=== PATIENT | female | born 1940 | race Caucasian/White ===

== ENCOUNTER 2024-03-11 10:19 | Inpatient (IN) | payer MEDICARE, SELFPAY ==
[2024-03-04 09:35] VITALS: BMI 28.1
[2024-03-11] VITALS (11 sets, daily range): BP systolic 95–155; BP diastolic 43–72; PULSE 70–84; RESP 13–19; TEMP 36.2–36.8; O2SAT 93–98; BMI 27.8; BMI 31.2
--- NOTE | 2024-03-11 10:38 | PM.PREOP ---
Pre-operative Note Interval Note History & Physical reviewed/Exam performed by Physician: Yes Changes to H&P: No
[2024-03-11] MEDS: LACTATED RINGERS 1,000 ML 42 ML IV ×2 (11:02→12:23)
[2024-03-11] MEDS: ACETAMINOPHEN 325 MG TABLET 975 MG PO (11:02)
[2024-03-11] MEDS: CEFAZOLIN 2 GM/100 ML PREMIX 100 ML IV (11:19)
[2024-03-11] MEDS: BUPIVACAINE 0.25% (PF) 60 ML, EPINEPHrine 0.15 MG INJ (11:40)
[2024-03-11] MEDS: BUPIVACAINE LIPOSOME 266 MG/20 ML VIAL INJ (11:41)
--- NOTE | 2024-03-11 11:41 | SUR.OPER ---
Prone on spine table, head in foam head support, padded chest and pelvic supports, gel pad at knees, lower legs supported by pillows; nipples, genitalia and toes free of pressure, arms secured on foam padded arm boards at <90 degrees abduction. Tape over blanket at thigh secured to table.
--- NOTE | 2024-03-11 13:10 | DI.RAD.S_ITS ---
PROCEDURE: XR LUMBAR SPINE 2-3V INDICATIONS: L3-4 TLIF TECHNIQUE: 3 intraoperative views of the lumbar spine were acquired. COMPARISON: None. FINDINGS: Bones: Intraoperative views during L3-L4 posterior spinal fixation discectomy. Hardware appears intact. IMPRESSION: Intraoperative views during L3-L4 posterior spinal fixation and discectomy. Hardware appears intact. Dictated by: Jose Elias Woodward M.D. on 03/11/2024 at 14:57 Approved by: Jose Elias Woodward M.D. on 03/11/2024 at 14:57
--- NOTE | 2024-03-11 13:22 | P.OP_ITS ---
Operative Date/Time/Diagnoses Date of procedure: 03/11/24 Time of procedure: 11:20 Pre-op diagnosis: 1. L3-4 spondylolisthesis 2. 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 L3-4 Postero-lateral and posterior interbody fusion 2. L3-4 interbody cage placement. 3. L3-4 decompressive laminectomy with bilateral facetecomies 4. L3-4 Posterior non-segmental instrumentation 5. Nedrow of bone marrow from iliac crest 6. Utilization of microsurgical technique and operating microscope Same procedure as scheduled: Yes Indications: Patient has been having chronic back pain and worsening lumbar radiculopathy and symptoms of neurogenic claudication. Patient was found have L3-4 spondylolisthesis and spinal stenosis correlate with patient's symptoms. Patient failed multiple conservative management with worsening pain weakness and numbness in her lower extremity. Patient has been having difficulty performing activity of daily living. After discussing risks benefits of treatment options, patient elected proceed with surgery. Surgeon: Lynda Escalona Welder/Installer: Marsha Trujillo Yes if Unassisted: No Anesthesia Type: General Operative Notes Closure Type: primary Prosthetic devices, grafts, tissues, transplants, or devices: Globus revolve screws, Rise cage Estimated Blood Loss (mL): 50 Blood products transfused: none Procedure in detail: Patient was seen in the preoperative area. Risks and benefits of the surgery was discussed with the patient. Informed consent was obtained from the patient and placed in the chart. Surgical site was marked. Patient was taken to the operative room. General anesthesia was administered. Prophylactic antibiotic was given to the patient less than 30 min before the incision was made. Patient was placed into a prone position on the Lobito table. Patient's back was then prepped and draped in the sterile fashion. Time-out was performed at this time. Using AP and lateral C-arm imaging the interval between L3-4 was identified and marked on patient's back. A 2 inch incision 2 in from midline was made on the right side first. The fascia was incised in line with skin incision. Globus MARS retractors was placed inside the incision and docked onto the L3 lamina. Using microsurgical technique and operating microscope, a L3 laminectomy and L3- 4 facetectomy was performed using a Kerrison rongeur. The laminectomy and facetectomy was performed in order to decompress patient's cauda equina as well as the nerve roots exiting at the L3-4 level. The disc space at L3-4 was identified. And a total diskectomy was performed at L3-4 level. The endplates were decorticated using a rasp and shaver. The total diskectomy and decortication was performed at L3-4 level in order to to accomplish a L3-4 fusion. The local bone from the laminectomy and facetectomy was saved for local bone grafting. After the total diskectomy and decortication was completed, Viacel bone graft material was combined with local bone that was harvested earlier. At this time, a separate skin is incision was made over the iliac crest. A Jamshidi needle was inserted into the iliac crest through a separate skin incision on the left side. 5 cc of bone marrow aspiration was obtained through the separate skin incision using a Jamshidi needle from the iliac crest. The bone marrow aspiration was combined with local bone and the Viacel bone grafting material. The bone grafting material was placed into the L3-4 interbody space along with a expandable cage. The cage was expanded to its maximum height using the torque limiting screwdriver. At this time a mirror image incision was made on the left side. The fascia was incised in line with the skin incision. Globus MARS retractor was inserted and docked onto the L3-4 posterolateral gutter. Using the power drill, posterior- lateral decortication was performed at L3-4 level until bleeding cortical bone was identified. The remaining bone grafting material was placed into the L3-4 posterior lateral gutter he order to accomplish posterolateral fusion at the L3- 4 level. Using the double C-arm technique, pedicle screws were placed into the L3-4 pedicles bilaterally. This was done by placing the Jamshidi needle into the pedicles, then placing the guidewires over the Jamshidi needle, and finally placing the cannulated screws over the guidewires bilaterally. After the pedicle screws were placed, 2 titanium rods was locked into the heads of the pedicle screws using locking caps and torque limiting screwdriver. After all the hardware was placed, and confirmed with AP and lateral C-arm imaging, the wound was then irrigated with sterile normal saline and packed with Ray-Lynn gauze for 3 min to accomplish hemostasis. After the gauze was removed the deep fascia was closed with #1 Vicryl suture. The subcutaneous layer was closed with 2-0 Vicryl. The skin was closed with skin manny. Patient tolerated the procedure well. There were no complications. The Operation could not have been safely performed without compromising the technical result or length of the procedure, without the assistance of a skilled surgical forceps fabricator. The surgical forceps fabricator was medically necessary for proper positioning, retraction and manipulation of instruments, proper exposure, surgical preparation, and manipulation of tissue. Neuro monitoring was utilized throughout the entire procedure. Patient has signal was stable throughout entire procedure without any disturbance. Complications: none Post-operative Condition: stable Disposition: PACU Plan for aftercare: Admit to inpatient hospital
[2024-03-11] MEDS: OXYCODONE IR 5 MG TABLET PO ×3 (14:09→21:36)
[2024-03-11] MEDS: LACTATED RINGERS 1,000 ML 125 ML IV (14:42)
[2024-03-11] MEDS: HYDROMORPHONE 0.5 MG INJ IV (14:45)
--- NOTE | 2024-03-11 16:14 | PT.IIE ---
Current Diagnoses Spondylolisthesis, lumbar region (03/11/24) Spinal stenosis, lumbar region with neurogenic claudication (03/11/24) Surgery Performed Operation Date: 03/11/24 11:45 Actual Procedures p L3-4 TLIF(Not Applicable) - Lynda Escalona MD Surgical History (Last Updated 03/04/24 @ 10:20 by Ifeoma Scott, RN) History of hysterectomy (1982) History of orthopedic surgery Hx of bilateral cataract extraction Hx of cholecystectomy Hx of ovarian cystectomy Hx of right breast biopsy Hx of tonsillectomy Medical History (Last Updated 03/04/24 @ 10:17 by Ifeoma Scott, ALDO) Anesthesia complication CKD (chronic kidney disease), stage III Depression Grief HLD (hyperlipidemia) HTN (hypertension) IBS (irritable bowel syndrome) RLS (restless legs syndrome) Spinal stenosis Spondylolisthesis Physical Therapy Inpatient Evaluation/Re-Eval M1 PT/OT-IP Prior Functional Status Start: 03/11/24 17:00 Freq: NEEDED Status: Active Protocol: Document 03/11/24 16:14 AB (Rec: 03/11/24 17:15 AB [id number]) Medical Review Prior Functional Status Medical History Reviewed Yes Communication able to make needs known Mobility and Gait pt stated that she was modified independent with all mobilities and ambulation without AD but occasionally uses a FWW Social History Household Members none Living Arrangements Mobile home Number of Floors (Floors) One Floor Number of Stairs To Enter/Railing? ramp to enter Home Environment Standard Height Toilet,Ramp Home Equipment Front Wheel Walker,Four Wheel Walker,Straight Cane,Hand Held Shower,Grab Bars In Shower Additional Social History Comment pt stated that her neighbor is putting a shower chair and a RTS at her house today and does not know what kind they are pt has an adjustable bed pt lives alone but plan is for her 3 daughters to rotate to stay with her and assist her M2 PT-IP Current Condition Start: 03/11/24 17:00 Freq: NEEDED Status: Active Protocol: Document 03/11/24 16:14 AB (Rec: 03/11/24 17:15 AB [id number]) Physical Therapy Current Condition Current Condition Evaluation Date 03/11/24 Treatment Diagnosis s/p L3-4 TLIF; difficulty in walking Onset Date 03/11/24 M3 PT-IP Subjective Start: 03/11/24 17:00 Freq: NEEDED Status: Active Protocol: Document 03/11/24 16:14 AB (Rec: 03/11/24 17:15 AB [id number]) Subjective Physical Therapy Visit Type Type Initial Evaluation Visit Start Time 16:14 Visit Stop Time 17:00 Number of CUSTOMER SERVICE CONSULTANT Visits 0 Physical Therapy Visit Comments Patient Comments agreeable to do PT Therapy Pain Assessment Pain When Pain Assessed At Rest Pain Present Pain Present Pain Reported Location low back to right leg Intensity 2 Scale Used 3/10 with movement Pain Management Techniques Distraction,Modification of Treatment,Re-positioning, Timing of Activity with Medications M4 PT-IP Mobility and Gait Start: 03/11/24 17:00 Freq: NEEDED Status: Active Protocol: Document 03/11/24 16:14 AB (Rec: 03/11/24 17:15 AB [id number]) PT-Bed Mobility Assessment Rolling Type of Rolling Log Rolling Level of Assist Moderate Assistance Supine to Sit Supine to Sit Moderate Assistance,Bedrails Sit to Supine Sit to Supine Moderate Assistance PT-Transfer Assessment Sit to and From Stand Sit to and from Stand Moderate Assistance,Maximum Assistance,1 Person Assistance ,Use of Upper Extremities Equipment Transfer Assistive Device Gait Belt,Front Wheeled Walker Orthotic/Prosthetic Devices or Brace: No Comments Mobility Comments pt supine in bed and agreeable to do PT. daughter in room with pt. obtained PLOF and home set up from pt and daughter. post-op folder provided and reviewed contents . pt able to recall her back precautions. educated pt on log roll bed mobility. BP: 116/50 O2 sat with 2L/min O2: 94% at RA: 90-92 % cued pt for deep breathing. trial without O2. pt completed log roll supine to sit mod A and max cues. O2 sat decreases at RA to ~ 87%. O2 put back on and cued for deep breathing and O2 sat increased to 96%. BP in sittin/52. pt with slight dizziness. able to sit on EOB for 2 more minutes and BP rechecked: 120/ 57. pt wants to stand and completed sit to stand mod to max A and max cues. mod to max A for standing balance using FWW with increase retro leaning. cued pt to correct. pt marched in place mod to max A and ambulated forward 3 ft and backwards 3 ft max A and cues. pt also took side steps towards HOB using FWW max A and cues. c/o increase dizziness. assisted to supine needing mod A and max cues for log roll. BP checked: 117 /54. pt now c/o nausea. informed nurse for meds. positioned pt in bed. call light and table placed within reach. daughter agreed to do caregiver training and stated that it is her sister that is going to come in tomorrow and will be in at ~ 9am. Gait Assessment Gait Gait Assistance Required: Moderate Assistance,Maximum Assistance,1 Person Assist Distance (Feet) 6 Able to Maintain Weight Bearing Status Yes During Gait Assistive Devices Assistive Device Gait Belt,Front Wheeled Walker Orthotic/Prosthetic Devices or Brace: No Gait Deviations General Gait Pattern Decreased Stride Length, Decreased Feet Clearance,Step- to Gait Factors Limiting Gait Function Factors Limiting Gait Function Decreased Activity Tolerance, Decreased Strength,Difficulty Following Directions,Limited Range of Motion,Pain,Poor Balance,Poor Safety Awareness, Respiratory Distress PT-Balance Assessment Sitting Balance and Reactions Static Sitting Balance Ability Good Dynamic Sitting Balance Ability Fair Standing Balance and Reactions Static Standing Balance Ability Poor Dynamic Standing Balance Ability Poor Device Used FWW M5 PT-IP Objective Assessments Start: 03/11/24 17:00 Freq: NEEDED Status: Active Protocol: Document 03/11/24 16:14 AB (Rec: 03/11/24 17:15 AB [id number]) Orientation Orientation/Cognition Level of Alertness Alert Orientation Name,Place,Situation Safety Awareness Decreased Safety Awareness Memory Description Short Term Impaired Gross Range of Motion Lower Extremity ROM Assessment Within Functional Limits Strength Lower Extremity Strength Assessment Right Impaired Hip 4-/5 Knee 3+/5 Sensation Assessment Sensation Gross Sensation WNL Muscle Tone Muscle Tone WNL Yes M6 PT-IP Treatment Start: 03/11/24 17:00 Freq: NEEDED Status: Active Protocol: Document 03/11/24 16:14 AB (Rec: 03/11/24 17:15 AB [id number]) Physical Therapy Treatment Education Education Provided Precautions,Weight Bearing Status,Post-Op Packet,Safety M7 PT-IP Assessment and Plan Start: 03/11/24 17:00 Freq: NEEDED Status: Active Protocol: Document 03/11/24 16:14 AB (Rec: 03/11/24 17:15 AB [id number]) PT Summary Assessment and Plan Potential Rehabilitation Potential Fair Status of Condition at Evaluation Evolving Summary Impairments Pain,ROM,Strength,Balance, Coordination,Sensation,Tone, Cognition,Bed Mobility, Transfers,Gait,Activity Tolerance Assessment Summary pt is an 83 y/o F s/p L3-4 TLIF POD 0. pt with back precautions. pt requiring mod to max A and max cues with mobility using FWW. pt unable to tolerate much activity today due to c/o dizziness and nausea. pt just had surgery today and will likely progress during hospital stay. pt plans to go home and her daughters will rotate to stay with her to assist. pt's daughter will be coming in at ~ 9 am tomorrow and when appropriate, caregiver training will be conducted. will continue to assess progress. Goals Bed Mobility Goal Standby Assistance Transfer Goal Standby Assistance,Front Wheeled Walker Gait Goal Standby Assistance,Front Wheel Walker Gait Distance 150 Other Goals improve bed mobility, transfers, ambulation using FWW ~ 250 ft mod I Frequency of Treatment Frequency Of Treatment Twice a Day Treatment Plan Physical Therapy Treatment Plan Bed Mobility Training,Transfer Training,Gait Training, Therapeutic Exercise,Balance Retraining,Post Op Education, Discharge Planning,Hot or Cold Pack,Neuromuscular Re-ed, Coordination Retraining,Manual Therapy Precautions Lumbar Precautions Log Roll,No Twisting,Limit Bending,Lifting Restriction of 10 lbs,Gait Belt above Incisional Area Recommendations To Nursing Amount of Assist Needed 1 Person Assist Discharge Recommendations PT Discharge Recommendations Home with 24/ Assist Available,Home Health Transportation Needs at Discharge Private Vehicle,Wheelchair/ Cabulance
[2024-03-11] MEDS: ONDANSETRON 4 MG/2 ML INJ IV (16:52)
[2024-03-11] MEDS: ACETAMINOPHEN 325 MG TABLET 650 MG PO (18:26)
[2024-03-11] MEDS: ATORVASTATIN 20 MG TABLET 10 MG PO (21:36)
[2024-03-11] MEDS: DOCUSATE 100 MG CAPSULE PO (21:36)
[2024-03-11] MEDS: SENNOSIDES 8.6 MG TABLET 17.2 MG PO (21:37)
[2024-03-11] MEDS: GABAPENTIN 100 MG CAPSULE PO (21:37)
[2024-03-12] MEDS: PANTOPRAZOLE DR 20 MG TABLET PO (06:52)
--- NOTE | 2024-03-12 07:18 | PM.PNPO.1 ---
Subjective Subjective Date Patient Seen: 03/12/24 Time Patient Seen: 07:18 Interval history: Patient from lying comfortably in bed. States she has pain along her back. No new numbness or tingling down her legs. She has been able to ambulate with physical therapy but gets tired at times when she goes from a lying to standing positions. Exam Vital Signs (past 8 hours): Fraction of Inspired Oxygen 24 SaO2/FiO2 Ratio 387 Oxygen Delivery Method Nasal Cannula Oxygen Flow Rate 1 Narrative Exam Narrative: SCDs are on. Dressing is clean and dry. No warmth or pain to palpation along the posterior calf or thigh bilaterally. 4/5 strength EPL. PF, DF, Quads and Hamstrings PFSH Medical History (Updated 03/04/24 @ 10:17 by Ifeoma Scott RN) Anesthesia complication Grief Depression Spondylolisthesis Spinal stenosis CKD (chronic kidney disease), stage III IBS (irritable bowel syndrome) HTN (hypertension) HLD (hyperlipidemia) RLS (restless legs syndrome) Surgical History (Updated 03/04/24 @ 10:20 by Ifeoma Scott RN) Hx of ovarian cystectomy Hx of right breast biopsy History of orthopedic surgery Hx of tonsillectomy History of hysterectomy (1982) Hx of cholecystectomy Hx of bilateral cataract extraction Social History household members: none Smoking Status: Never smoker alcohol intake: current Assessment & Plan Post-op Postoperative Procedures: Procedures Operation Date: 03/11/24 11:45 Actual Procedure Side Surgeon p L3-4 TLIF Not Applicable Lynda Escalona MD Postoperative day: 1 Postoperative status: doing well Postoperative plan: routine post-op care and ambulate Postoperative plan narrative: Patient demonstrated orthostatic hypotension throughout the day that worsens when she works with physical therapy. We will administer a bolus of 1000 cc of lactated Ringer's and observed throughout the evening. Order H and H Patient will continue to work with physical therapy to assist with ambulation. Multimodal pain control. Continue to utilize SCDs while in bed for VTE prevention Re-evaluate tomorrow to discharge home. Time Spent With Patient Time with patient: less than 15 minutes Quality VTE Deep Vein Thrombosis/Pulmonary Embolism Present on Admission: No
[2024-03-12] MEDS: ONDANSETRON 4 MG ODT SL ×2 (07:47→16:26)
[2024-03-12] MEDS: ACETAMINOPHEN 325 MG TABLET 650 MG PO (07:47)
[2024-03-12] MEDS: OXYCODONE IR 5 MG TABLET PO ×2 (07:47→12:20)
[2024-03-12 08:00] VITALS: BP 121/52; PULSE 72; RESP 16; TEMP 36.2; O2SAT 93
[2024-03-12 08:39] VITALS: BP 119/57; BP 96/35
[2024-03-12] MEDS: SERTRALINE 50 MG TABLET 75 MG PO (08:41)
[2024-03-12] MEDS: DOCUSATE 100 MG CAPSULE PO ×2 (08:41→21:29)
--- NOTE | 2024-03-12 10:00 | PT.IPTN ---
Current Diagnoses Spondylolisthesis, lumbar region (03/11/24) Spinal stenosis, lumbar region with neurogenic claudication (03/11/24) Surgery Performed Operation Date: 03/11/24 11:45 Actual Procedures p L3-4 TLIF(Not Applicable) - Lynda Escalona MD Physical Therapy Treatment Note M2 PT-IP Current Condition Start: 03/11/24 17:00 Freq: NEEDED Status: Active Protocol: Document 03/11/24 16:14 AB (Rec: 03/11/24 17:15 AB [id number]) Physical Therapy Current Condition Current Condition Evaluation Date 03/11/24 Treatment Diagnosis s/p L3-4 TLIF; difficulty in walking Onset Date 03/11/24 M3 PT-IP Subjective Start: 03/11/24 17:00 Freq: NEEDED Status: Active Protocol: Document 03/12/24 10:24 TS (Rec: 03/12/24 10:44 TS [id number]) Subjective Physical Therapy Visit Type Type Treatment Note Visit Start Time 10:00 Visit Stop Time 10:23 Notes Daughter present for caregiver training. Number of TILE FINISHER Visits 1 Physical Therapy Visit Comments Patient Comments Pt found resting in bed, reports dizziness earlier when up with nursing. She is agreeable to PT. Therapy Pain Assessment Pain When Pain Assessed At Rest Pain Present Pain Present Pain Reported Location low back to right leg Intensity 2 Scale Used Numeric (0 - 10) Description Acute Pain Management Techniques Distraction,Modification of Treatment,Re-positioning, Timing of Activity with Medications M4 PT-IP Mobility and Gait Start: 03/11/24 17:00 Freq: NEEDED Status: Active Protocol: Document 03/12/24 10:24 TS (Rec: 03/12/24 10:44 TS [id number]) PT-Bed Mobility Assessment Rolling Type of Rolling Log Rolling Level of Assist Standby Assistance Supine to Sit Supine to Sit Contact Guard Assistance, Bedrails Scooting Scooting to Edge of Bed Standby Assistance PT-Transfer Assessment Sit to and From Stand Sit to and from Stand Contact Guard Assistance,Use of Upper Extremities Equipment Transfer Assistive Device Gait Belt,Front Wheeled Walker Orthotic/Prosthetic Devices or Brace: No Comments Mobility Comments BP in supine 124/49. Pt recalled 3/3 spinal precautions. Logroll to L side SBA with BUE support, pt demonstrates good carryover. Supine to sit CGA with cues for uprighting trunk. She scooted to EOB SBA with BUE support, cued for decreased twisting. BP in sitting 129/56 , pt has some dizziness. STS with FWW CGA, BP in standing 113/49, pt reports some dizziness/lightheadedness. She ambulated ~50'CGA with FWW, pt reports increased lightheadedness and some sweating. Pt sat in chair, BP in sitting 120/47. She was left in chair, all needs met. Gait Assessment Gait Gait Assistance Required: Contact Guard Assist Distance (Feet) 50 Able to Maintain Weight Bearing Status Yes During Gait Assistive Devices Assistive Device Gait Belt,Front Wheeled Walker Orthotic/Prosthetic Devices or Brace: No Gait Deviations General Gait Pattern Decreased Stride Length, Decreased Feet Clearance,Step- to Gait Factors Limiting Gait Function Factors Limiting Gait Function Decreased Activity Tolerance, Decreased Strength,Difficulty Following Directions,Limited Range of Motion,Pain,Poor Balance,Poor Safety Awareness, Respiratory Distress Comments Gait Comments See mobility comments PT-Balance Assessment Sitting Balance and Reactions Static Sitting Balance Ability Good Dynamic Sitting Balance Ability Fair Standing Balance and Reactions Static Standing Balance Ability Good Dynamic Standing Balance Ability Fair Device Used FWW M5 PT-IP Objective Assessments Start: 03/11/24 17:00 Freq: NEEDED Status: Active Protocol: Document 03/11/24 16:14 AB (Rec: 03/11/24 17:15 AB [id number]) Orientation Orientation/Cognition Level of Alertness Alert Orientation Name,Place,Situation Safety Awareness Decreased Safety Awareness Memory Description Short Term Impaired Gross Range of Motion Lower Extremity ROM Assessment Within Functional Limits Strength Lower Extremity Strength Assessment Right Impaired Hip 4-/5 Knee 3+/5 Sensation Assessment Sensation Gross Sensation WNL Muscle Tone Muscle Tone WNL Yes M6 PT-IP Treatment Start: 03/11/24 17:00 Freq: NEEDED Status: Active Protocol: Document 03/12/24 10:24 TS (Rec: 03/12/24 10:44 TS [id number]) Physical Therapy Treatment Education Education Provided Precautions,Weight Bearing Status,Post-Op Packet,Safety M7 PT-IP Assessment and Plan Start: 03/11/24 17:00 Freq: NEEDED Status: Active Protocol: Document 03/12/24 10:24 TS (Rec: 03/12/24 10:44 TS [id number]) PT Summary Assessment and Plan Potential Rehabilitation Potential Fair Summary Impairments Pain,ROM,Strength,Balance, Coordination,Sensation,Tone, Cognition,Bed Mobility, Transfers,Gait,Activity Tolerance Progress Towards Goals Slow Progress due to Medical Issues Assessment Summary Jamilah is making progress with her mobility but remains limited by hypotension. She is SBA/CGA for bed mobility and demonstrates some carryover of bed mobility sequencing. She progressed her gait to ~50'CGA with FWW. She continues to have some hypotension(see mobility comments) with symptoms, RN was notified. Daughter was instructed in donning of gait belt, bed mobility, STS and gait. PT is recommending home with assist. Goals Bed Mobility Goal Standby Assistance Transfer Goal Standby Assistance,Front Wheeled Walker Gait Goal Standby Assistance,Front Wheel Walker Gait Distance 150 Other Goals improve bed mobility, transfers, ambulation using FWW ~ 250 ft mod I Frequency of Treatment Frequency Of Treatment Twice a Day Treatment Plan Physical Therapy Treatment Plan Bed Mobility Training,Transfer Training,Gait Training, Therapeutic Exercise,Balance Retraining,Post Op Education, Discharge Planning,Hot or Cold Pack,Neuromuscular Re-ed, Coordination Retraining,Manual Therapy Precautions Lumbar Precautions Log Roll,No Twisting,Limit Bending,Lifting Restriction of 10 lbs,Gait Belt above Incisional Area Recommendations To Nursing Amount of Assist Needed Standby Assistance Discharge Recommendations PT Discharge Recommendations Home with Assistance,Home Health Transportation Needs at Discharge Private Vehicle
--- NOTE | 2024-03-12 11:18 | OT.IP.EVAL ---
Current Diagnoses Spondylolisthesis, lumbar region (03/11/24) Spinal stenosis, lumbar region with neurogenic claudication (03/11/24) Surgery Performed Operation Date: 03/11/24 11:45 Actual Procedures p L3-4 TLIF(Not Applicable) - Lynda Escalona MD Past Medical History (Last Updated 03/04/24 @ 10:17 by Ifeoma Scott, RN) Anesthesia complication CKD (chronic kidney disease), stage III Depression Grief HLD (hyperlipidemia) HTN (hypertension) IBS (irritable bowel syndrome) RLS (restless legs syndrome) Spinal stenosis Spondylolisthesis Surgical History (Last Updated 03/04/24 @ 10:20 by Ifeoma Scott RN) History of hysterectomy (1982) History of orthopedic surgery Hx of bilateral cataract extraction Hx of cholecystectomy Hx of ovarian cystectomy Hx of right breast biopsy Hx of tonsillectomy Occupational Therapy Inpatient Evaluation/Re-Eval M1 PT/OT-IP Prior Functional Status Start: 03/11/24 17:00 Freq: NEEDED Status: Active Protocol: Document 03/11/24 16:14 AB (Rec: 03/11/24 17:15 AB [id number]) Medical Review Prior Functional Status Medical History Reviewed Yes Communication able to make needs known Mobility and Gait pt stated that she was modified independent with all mobilities and ambulation without AD but occasionally uses a FWW Social History Household Members none Living Arrangements Mobile home Number of Floors (Floors) One Floor Number of Stairs To Enter/Railing? ramp to enter Home Environment Standard Height Toilet,Ramp Home Equipment Front Wheel Walker,Four Wheel Walker,Straight Cane,Hand Held Shower,Grab Bars In Shower Additional Social History Comment pt stated that her neighbor is putting a shower chair and a RTS at her house today and does not know what kind they are pt has an adjustable bed pt lives alone but plan is for her 3 daughters to rotate to stay with her and assist her M1 PT/OT-IP Prior Functional Status Start: 03/12/24 11:19 Freq: NEEDED Status: Active Protocol: Document 03/12/24 11:20 [facility] (Rec: 03/12/24 11:43 [facility] [id number]) Medical Review Prior Functional Status Medical History Reviewed Yes Communication able to make needs known Mobility and Gait pt stated that she was modified independent with all mobilities and ambulation without AD but occasionally uses a FWW Activities of Daily Living and IADL's Pt states able to do all her need and having more pain. Social History Household Members none Living Arrangements Mobile home Number of Floors (Floors) One Floor Number of Stairs To Enter/Railing? ramp to enter Home Environment Standard Height Toilet,Ramp Home Equipment Front Wheel Walker,Four Wheel Walker,Straight Cane,Hand Held Shower,Grab Bars In Shower Additional Social History Comment pt stated that her neighbor is putting a shower chair and a RTS at her house today and does not know what kind they are pt has an adjustable bed pt lives alone but plan is for her 3 daughters to rotate to stay with her and assist her M2 OT-IP Current Condition Start: 03/12/24 11:19 Freq: Status: Active Protocol: Document 03/12/24 11:20 [facility] (Rec: 03/12/24 11:43 [facility] [id number]) Occupational Therapy Current Condition Current Condition Evaluation Date 03/12/24 Treatment Diagnosis S/P L3-4 TLIF Diagnosis Onset Date 03/11/24 Post Operative Precautions Lumbar Precautions Log Roll,No Twisting,Limit Bending,Lifting Restriction of 10 lbs,Gait Belt above Incisional Area M3 OT- IP Subjective and Pain Start: 03/12/24 11:19 Freq: Status: Active Protocol: Document 03/12/24 11:20 [facility] (Rec: 03/12/24 11:43 [facility] [id number]) OT- Subjective Occupational Therapy Visit Type Type Initial Evaluation Visit Start Time 10:52 Visit Stop Time 11:18 Occupational Therapy Visit Comments Patient Comments Pt feeling woozy and agreed to get up. Patient/Caregiver Goals To go home. OT Pain Assessment Pain When Pain Assessed At Rest Pain Present Pain Present Pain Reported Location low back to right leg Intensity 3 Scale Used Numeric (0 - 10) M4 OT- IP ADL's Start: 03/12/24 11:19 Freq: Status: Active Protocol: Document 03/12/24 11:20 [facility] (Rec: 03/12/24 11:43 [facility] [id number]) OT ADL-Grooming Comments OT Grooming Comments Not performed. OT ADL-Dressing General Eval Lower Body Dressing Ability Maximum Assistance Areas Needing Assistance Socks Comments OT Dressing Comments Able to go over and practice use of sock aid and machine dyer for LB dressing needs. OT ADL-Toileting Comments OT Toileting Comments Not performed. Educated easier to stand and wipe or use of toilet paper aid. OT ADL-Bathing Comments OT Bathing Comments Not performed. M5 OT- IP IADL's Start: 03/12/24 11:19 Freq: Status: Active Protocol: Document 03/12/24 11:20 [facility] (Rec: 03/12/24 11:43 [facility] [id number]) OT-Instrumental Activities of Daily Living Home Safety Awareness Awareness of Need for Assistance at Home Good Awareness Ability to Problem Solve Emergency Able to Problem Solve Situations Home Safety Comments Pt will have her daughter to be able to assist her for all needs. Meal Preparation Meal Preparation Caregiver Provides Assist Layout Technician Layout Technician Caregiver Provides Assist M6 OT- IP Functional Cognition Start: 03/12/24 11:19 Freq: Status: Active Protocol: Document 03/12/24 11:20 [facility] (Rec: 03/12/24 11:43 [facility] [id number]) Cognitive Factors Limiting Selfcare Function Cognitive Ability Level of Alertness Alert Patient Orientation Name,Age,Birthday,Month,Date, Year,Day of Week,Place, Situation Attention Span Ability Capable of Focused Attention, Capable of Sustained Attention Ability to Follow Commands Able to Follow One Step Commands Cognitive Comments Cognitive Assessment Comments Pt able to follow the back precautions with cues. Pt a little woozy when getting up. OT- Vision and Hearing OT- Hearing Assessment OT- Hearing Assessment WFL OT- Vision Assessment Visual Acuity Glasses All The Time M7 OT- IP Mobility and Balance Start: 03/12/24 11:19 Freq: Status: Active Protocol: Document 03/12/24 11:20 [facility] (Rec: 03/12/24 11:43 [facility] [id number]) OT- Bed Mobility Assessment Supine to Sit Supine to Sit Assist Minimal Assistance Sit to Supine Sit to Supine Assist Minimal Assistance Scooting Scooting to Edge of Bed Contact Guard Assistance OT-Transfer Assessment Sit to and From Stand Sit to and from Stand Contact Guard Assistance Technique Transfer Destination Bed Devices Transfer Assistive Devices Gait Belt,Front Wheeled Walker Comments Mobility Comments ALAN for bed mobility and would benefit from having having a bed rail at home to use. Pt tends to reach back and cues to reach forwards. OT- Balance Assessment Sitting Balance and Reactions Static Sitting Balance Ability Good Dynamic Sitting Balance Ability Fair Standing Balance and Reactions Static Standing Balance Ability Good M9 OT- IP Assessment and Plan Start: 03/12/24 11:19 Freq: Status: Active Protocol: Document 03/12/24 11:20 [facility] (Rec: 03/12/24 11:43 [facility] [id number]) OT Summary Assessment and Plan Potential Rehabilitation Potential Good Analytic Complexity at Evaluation Low Summary OT Impairments Pain,Strength,Balance, Functional Mobility,Grooming, Dressing,Toileting,Bathing, Toilet Transfers,Shower Transfers Progress Towards Goals Slow Progress due to Pain,Slow Progress due to Medical Issues Assessment Summary Pt low complexity and main barriers are pain, feeling hypotensive and woozy when getting up at this time. Initiate caregiver training with pt's daugther and will benefit from BSC, sock aid, toilet paper aid, and bed rail for home use. Goals Grooming Goal Independent Dressing Goal Independent Toileting Goal Independent Bathing Goal Standby Assistance Toilet Transfer Goal Independent Shower Transfer Goal Independent Days to Meet Goals 5 Frequency of Treatment Other frequency 5x/week Treatment Plan OT Treatment Plan ADL Training,Functional Mobility,Patient/Family Education,Discharge Planning Discharge Recommendations OT Discharge Recommendations Home with Assistance Home Equipment Needs BSC, sock aid, bed rail, toilet paper aid Transportation Needs at Discharge Private Vehicle
[2024-03-12] MEDS: LACTATED RINGERS 1,000 ML 1000 ML IV (11:31)
[2024-03-12 13:30] VITALS: BP 106/51; BP 114/58; BP 115/55
--- NOTE | 2024-03-12 13:39 | PT.IPTN ---
Current Diagnoses Spondylolisthesis, lumbar region (03/11/24) Spinal stenosis, lumbar region with neurogenic claudication (03/11/24) Surgery Performed Operation Date: 03/11/24 11:45 Actual Procedures p L3-4 TLIF(Not Applicable) - Lynda Escalona MD Physical Therapy Treatment Note M2 PT-IP Current Condition Start: 03/11/24 17:00 Freq: NEEDED Status: Active Protocol: Document 03/11/24 16:14 AB (Rec: 03/11/24 17:15 AB [id number]) Physical Therapy Current Condition Current Condition Evaluation Date 03/11/24 Treatment Diagnosis s/p L3-4 TLIF; difficulty in walking Onset Date 03/11/24 M3 PT-IP Subjective Start: 03/11/24 17:00 Freq: NEEDED Status: Active Protocol: Document 03/12/24 13:59 TS (Rec: 03/12/24 14:08 TS [id number]) Subjective Physical Therapy Visit Type Type Treatment Note Visit Start Time 13:39 Visit Stop Time 13:55 Number of LEAD TECHNOLOGIST IN CYTOGENETICS Visits 2 Physical Therapy Visit Comments Patient Comments Pt found resting in bed, is agreeable to PT. M4 PT-IP Mobility and Gait Start: 03/11/24 17:00 Freq: NEEDED Status: Active Protocol: Document 03/12/24 13:59 TS (Rec: 03/12/24 14:08 TS [id number]) PT-Bed Mobility Assessment Rolling Type of Rolling Log Rolling Level of Assist Standby Assistance Supine to Sit Supine to Sit Standby Assistance,Bedrails Sit to Supine Sit to Supine Standby Assistance Scooting Scooting to Edge of Bed Standby Assistance PT-Transfer Assessment Sit to and From Stand Sit to and from Stand Standby Assistance Equipment Transfer Assistive Device Gait Belt,Front Wheeled Walker Orthotic/Prosthetic Devices or Brace: No Comments Mobility Comments BP in supine 114/58. Supine to sit SBA with BUE support, pt demonstrates good carryover. BP in sitting 106/51. BP in standing 115/55 She ambulated ~150' in the hallway SBA/CGA with FWW, reports some lightheadedness. BP again in standing 108/50. Sit to supine into bed SBA. BP in supine 129/63. Pt was left in bed, all needs met. Gait Assessment Gait Gait Assistance Required: Standby Assistance,Contact Guard Assist Distance (Feet) 150 Able to Maintain Weight Bearing Status Yes During Gait Assistive Devices Assistive Device Gait Belt,Front Wheeled Walker Orthotic/Prosthetic Devices or Brace: No Gait Deviations General Gait Pattern Decreased Stride Length, Decreased Feet Clearance,Step- to Gait Factors Limiting Gait Function Factors Limiting Gait Function Decreased Activity Tolerance, Decreased Strength,Difficulty Following Directions,Limited Range of Motion,Pain,Poor Balance,Poor Safety Awareness, Respiratory Distress Comments Gait Comments See mobility comments PT-Balance Assessment Sitting Balance and Reactions Static Sitting Balance Ability Good Dynamic Sitting Balance Ability Fair Standing Balance and Reactions Static Standing Balance Ability Good Dynamic Standing Balance Ability Fair Device Used FWW M5 PT-IP Objective Assessments Start: 03/11/24 17:00 Freq: NEEDED Status: Active Protocol: Document 03/11/24 16:14 AB (Rec: 03/11/24 17:15 AB [id number]) Orientation Orientation/Cognition Level of Alertness Alert Orientation Name,Place,Situation Safety Awareness Decreased Safety Awareness Memory Description Short Term Impaired Gross Range of Motion Lower Extremity ROM Assessment Within Functional Limits Strength Lower Extremity Strength Assessment Right Impaired Hip 4-/5 Knee 3+/5 Sensation Assessment Sensation Gross Sensation WNL Muscle Tone Muscle Tone WNL Yes M6 PT-IP Treatment Start: 03/11/24 17:00 Freq: NEEDED Status: Active Protocol: Document 03/12/24 13:59 TS (Rec: 03/12/24 14:08 [id number]) Physical Therapy Treatment Education Education Provided Precautions,Weight Bearing Status,Post-Op Packet,Safety M7 PT-IP Assessment and Plan Start: 03/11/24 17:00 Freq: NEEDED Status: Active Protocol: Document 03/12/24 13:59 TS (Rec: 03/12/24 14:08 [id number]) PT Summary Assessment and Plan Potential Rehabilitation Potential Fair Summary Impairments Pain,ROM,Strength,Balance, Coordination,Sensation,Tone, Cognition,Bed Mobility, Transfers,Gait,Activity Tolerance Progress Towards Goals Progressing Toward Goals Assessment Summary Jamilah is progress with her mobility. She continues to be SBA for bed mobility and demonstrates good carryover of sequencing. She progressed her gait to ~150' SBA/CGA with FWW. She continues to have some dizziness in standing, see vitals above. PT is recommending home with assist. Goals Bed Mobility Goal Standby Assistance Transfer Goal Standby Assistance,Front Wheeled Walker Gait Goal Standby Assistance,Front Wheel Walker Gait Distance 150 Other Goals improve bed mobility, transfers, ambulation using FWW ~ 250 ft mod I Frequency of Treatment Frequency Of Treatment Twice a Day Treatment Plan Physical Therapy Treatment Plan Bed Mobility Training,Transfer Training,Gait Training, Therapeutic Exercise,Balance Retraining,Post Op Education, Discharge Planning,Hot or Cold Pack,Neuromuscular Re-ed, Coordination Retraining,Manual Therapy Precautions Lumbar Precautions Log Roll,No Twisting,Limit Bending,Lifting Restriction of 10 lbs,Gait Belt above Incisional Area Recommendations To Nursing Amount of Assist Needed Standby Assistance Discharge Recommendations PT Discharge Recommendations Home with Assistance,Home Health Transportation Needs at Discharge Private Vehicle
--- NOTE | 2024-03-12 14:30 | CM.DANOTE ---
Patient is an 83 yo female who was admitted INPT Status on 03/11/24 for TLIF. Pt has [facility] for insurance and her PCP is Jelena Alejandro. EMR was reviewed. Per ORtho PA, pt tolerated procedure well and to work with therapies and then likely discharge today vs tomorrow pending progress. Per PT/OT, recommending home with assist and HH and pt had orthostatics today and may not be stable for d/c yet today and will work with pt again this afternoon. SW met bedside with pt and Dtr and explained role and they confirm pt lives in [facility] in a mobile home alone but has local supportive Dtrs. Pt is active and independent at baseline and has FWW and friend picking up some home DME for her today. Pt denies any hx of HH or SNF and states her 3 Dtrs are her DPOAs. They confirm that discharge plan is pt to d/c home and her 3 adult Dtrs will take turns staying with the patient and providing assist and transport. SW discussed HH recommendation and discussed services and frequency and both Dtr and pt feel she will be homebound and that HH would be needed. SW provided the HH Choice list and [facility] is contracted with pt's insurance. CC Alisha kindly made [facility] referral and F2F was completed but not faxed yet. Plan: SW to follow for plan of discharge home with Dtr to stay and assist when bp issues resolved and new [facility] referral made. SW to fax F2F, HH orders, and d/c summ to [facility] at discharge. DELIO Coffey Discharge Planning/Care Management CM Discharge Assessment Start: 03/12/24 14:28 Freq: Status: Active Protocol: Document 03/12/24 14:28 [facility] (Rec: 03/12/24 14:30 [id number]) Discharge Planning Assessment Assigned Triple Drum Operator DELIO Huntley DPOA/Assigned Designee Name Dtrs Contact Information [phone] Advance Directives? Yes Advance Directives on File No History Provided By Patient,Family Member,Medical Record Has Patient been admitted in last 30 No days? Prior Living Arrangements Mobile home Household Members none Type of transporation used prior to Drives own vehicle admit Independent with ADL's Yes Is patient alert and oriented? Yes Needs Assistance With Home Chores / Shopping Caregiver for Another No Community Services used prior to Physical Therapy admission: DME Already Rented / Owned FWW / Walker,Cane Patient/Family Preference Home with Home Health Barriers to Discharge No Discharge Plan Home with Home Health Community Services Physical Therapy,Occupational Therapy,Home Health Aid,Home Health Nurse Transportation Arrangement Dtr bedside and will transport Referrals Initiated Home Health If patient plan is home with home health Yes : Has signed face to face form been completed? Medicare Choice List Provided Yes Medicare choice list reviewed on patient,family electronic tablet with SNF/HH Preference [facility] takes pt's insurance Whiteboard Updated in Patient Room with Yes name and ext. # of Triple Drum Operator Review Status In Process Please Provide Date Initial DC 03/12/24 Assessment Was Performed Next Review Type Continued Stay Review Pre-Anesthesia Assessment Start: 03/04/24 09:35 Freq: Status: Active Protocol: Document 03/04/24 09:35 [facility] (Rec: 03/04/24 10:28 [facility] [id number]) Pre-Anesthesia Assessment Patient Information Reviewed Via Phone Assessment Assessment Completed With Patient Comment Labs/EKG done per pt, surgeon has, looked fine not available with chart Primary Care Provider Christine Alonzo Seen Specialist in Last 12 Months Yes Specialist Seen Orthopedist Primary Language Greek Track Walker Required No Height 148.59 cm Weight 62.142 kg Body Mass Index (BMI) 28.1 Hearing Ability Normal Visual Assist Glasses Dentition Type Teeth, Natural Present,Teeth, Missing Barriers to Learning None Hx Anesthesia Reactions Yes: Hypotension s/p surgery in the 70's, nothing since Hx Family Anesthesia Reaction No Hx Malignant Hyperthermia No Hx Blood Transfusions No Anesthesia Review Requested No Auto [place]ulaway Driver No alcohol intake current alcohol intake frequency holidays/special occasions only Smoking Status Never smoker Substance Use Type does not use Pain Present Pain Reported Musculoskeletal Symptoms Abnormal Gait,Back Pain, Difficulty Walking,Joint Pain, Numbness,Radiating Pain into Limb,Tingling History of Falling (Recent or History of No ) Patient is completely paralyzed or No completely immobile Prosthesis or Orthotic Device Front Wheel Walker Mental Status Oriented to own ability Is patient on oxygen? No Does patient have AR[place]A/SOB No Hx Sleep Apnea No Currently Taking a Beta Carmella No Can You Climb a Flight of Stairs Without Yes SOB Hx Chest Pain No Hx SOB No Hx Syncope or Dizziness No Anti-Coagulant Therapy No Has a Desk Manager No Cardiac Testing No Hx Pacemaker/ICD No Pacemaker Rep Required? No Cardiac Clearance Received No Diet Type At Home Regular Dysphagia No Gastrointestinal Symptoms Reflux Bladder Pattern Frequency,Nocturia Urinary Catheter Present No Hx Urinary Self Catheterization No Diabetes No Patient No Lactating No Hx Drug Resistant Organism No Presence of External or Internal Medical Yes: Jg eye IOLs, clips ( Devices hysterectomy) Marital Status /- 01/08/24 Lives With none Current Living Arrangements Mobile home Number of Floors (Floors) One Floor Support System Child/Children Does the Patient Have Assistance After Yes: Daughters will stay w/pt Surgery to assist with care at [place] Patient Discharge Plan Description Return Home Comment Pt advised 1 night length of stay per surgeon Feels Safe in Current Environment Yes Been Physically Hurt or Threatened By a No Person in Current Environment Do you have thoughts of harming yourself None or others? Are you currently considering suicide? No Do you have a plan to hurt yourself or No Plan others? Do You Have Any Spiritual Beliefs That No May Affect Your HC Choices? Do You Have Any Cultural Practices That No May Affect Your HC Choices? Comment Church Who Can We Speak to About Patient's Care Family, friends Identifying Code for Release of Patient Declines to issue Information Health Care Proxy/Next of Kin Lilia (daughter) Health Care Proxy Emergency Contact Name Lilia (daughter) Emergency Contact Advance Directives? Yes Advance Directives on File No Requested Patient Bring Advanced Yes Directives DOS Power of Pipefitter Yes Power of Pipefitter Name Lilia (malika) Power of Pipefitter PAC Instructions Assistance for 24 hours post- op,Durable medical equipment, Medications to take/avoid, Nasal antibiotic,No ETOH/ petroleum product on skin DOS, NPO,Post-op transportation,Pre -surgical wash,Sensory aids, Sturdy shoes/comfortable clothes,Do not bring valuables and remove jewelry
[2024-03-12] MEDS: polyethylene glycoL 3350 17 GM POWD.PACK PO (16:26)
--- NOTE | 2024-03-12 17:27 | PC.NURSE ---
Day shift: Pt continues to be dizzy and diaphoretic with ambulation. Mildly orthostatic. RICHARD Scanlon aware. 1L LR bolus given this AM. Patient's symptoms did not improve while ambulating this afternoon. Patient also stated that her stomach felt bloated. Gave prune juice and miralax in addition to her scheduled stool softeners. No BM yet. Nausea x 2 this shift, no emesis. PO zofran provided adequate relief. Will continue to monitor.
[2024-03-12] MEDS: METOCLOPRAMIDE 10 MG/2 ML INJ IV (18:52)
[2024-03-12 19:00] VITALS: BP 142/50; PULSE 93; RESP 20; TEMP 37.5; O2SAT 94
[2024-03-12 20:51] LABS: Hematocrit 28.8 % (36-46); Hemoglobin 9.6 g/dL (12.0-16.0)
[2024-03-12] MEDS: SENNOSIDES 8.6 MG TABLET 17.2 MG PO (21:29)
[2024-03-12] MEDS: ATORVASTATIN 20 MG TABLET 10 MG PO (21:29)
[2024-03-12] MEDS: GABAPENTIN 100 MG CAPSULE PO (21:30)
[2024-03-13] MEDS: PANTOPRAZOLE DR 20 MG TABLET PO (06:00)
[2024-03-13] MEDS: ACETAMINOPHEN 325 MG TABLET 650 MG PO (06:01)
[2024-03-13 08:26] VITALS: BP 138/70; PULSE 78; RESP 17; TEMP 37.1; O2SAT 91
[2024-03-13] MEDS: SERTRALINE 50 MG TABLET 75 MG PO (08:27)
[2024-03-13] MEDS: DOCUSATE 100 MG CAPSULE PO (08:28)
[2024-03-13] MEDS: MAGNESIUM HYDROXIDE 30 ML UDC PO (08:28)
--- NOTE | 2024-03-13 08:28 | PM.DS.1 ---
History of Present Illness History of Present Illness Date Patient Seen: 03/13/24 Time Patient Seen: 08:00 Chief complaint: INPT Narrative: Patient is found lying comfortably in bed. Pain has been controlled oral medications. She does have constipation but no abdominal pain. She been able to work with physical therapy and ambulate with a walker. She feels ready to discharge home. Discharge Providers Provider Date of admission: 03/11/24 10:19 Discharge Date: 03/13/24 Primary care physician: Christien Alonzo MD Consults: 03/11/24 13:59 Consult to Occupational Therapy Evaluate & Treat Comment: Physician Instructions: Evaluate and treat Consult to Physical Therapy Evaluate & Treat Comment: Physician Instructions: Evaluate and Treat Discharge provider: Keenan Scanlon PA-C Summary Hospital Course Discharge Diagnosis: 1. L3-4 spondylolisthesis 2. L3-4 spinal stenosis with neurogenic claudication Hospital Course: Procedure & Clinicians Procedure: 1. L3-4 Postero-lateral and posterior interbody fusion 2. L3-4 interbody cage placement. 3. L3-4 decompressive laminectomy with bilateral facetecomies 4. L3-4 Posterior non-segmental instrumentation 5. [place] of bone marrow from iliac crest 6. Utilization of microsurgical technique and operating microscope Same procedure as scheduled: Yes Indications: Patient has been having chronic back pain and worsening lumbar radiculopathy and symptoms of neurogenic claudication. Patient was found have L3-4 spondylolisthesis and spinal stenosis correlate with patient's symptoms. Patient failed multiple conservative management with worsening pain weakness and numbness in her lower extremity. Patient has been having difficulty performing activity of daily living. After discussing risks benefits of treatment options, patient elected proceed with surgery. Surgeon: Lynda Escalona Aerial Erector: Marsha Bhatti Click Yes if Unassisted: No Anesthesia Type: General Operative Notes Closure Type: primary Prosthetic devices, grafts, tissues, transplants, or devices: Globus revolve screws, Rise cage Estimated Blood Loss (mL): 50 Blood products transfused: none Status at Discharge Cognitive/behavioral status at discharge: oriented Functional status at discharge: uses cane/walker Overall status at discharge: patient is progressing back to baseline Time Spent with Patient Time spent: Less than 30 minutes Exam Vital Signs (past 8 hours): - 03/13/24 08:26 Temperature 98.8 F Pulse Rate 78 Respiratory Rate 17 Blood Pressure 138/70 Pulse Oximetry 91 Fraction of Inspired Oxygen 28 SaO2/FiO2 Ratio 335 Oxygen Delivery Method Nasal Cannula Oxygen Flow Rate 2 Narrative Exam Narrative: Dressing is clean and intact. No pain to compression along posterior calf or thigh. Sensation intact to light palpation along the lower extremities. 5/5 EPL, DF, PF, knee flexors and extenders Resp Effort & Inspection: normal respiratory effort and able to speak in complete sentences Objective Labs 03/12/24 20:27 Labs: Laboratory Results - last 24 hr 03/12/24 20:27 Hgb 9.6 L Hct 28.8 L PFSH Medical History (Updated 03/04/24 @ 10:17 by Ifeoma Scott RN) Anesthesia complication Grief Depression Spondylolisthesis Spinal stenosis CKD (chronic kidney disease), stage III IBS (irritable bowel syndrome) HTN (hypertension) HLD (hyperlipidemia) RLS (restless legs syndrome) Surgical History (Updated 03/04/24 @ 10:20 by Ifeoma Scott RN) Hx of ovarian cystectomy Hx of right breast biopsy History of orthopedic surgery Hx of tonsillectomy History of hysterectomy (1982) Hx of cholecystectomy Hx of bilateral cataract extraction Social History household members: none Smoking Status: Never smoker alcohol intake: current Discharge Assessment & Plan Assessment and Plan Assessment: Status post TLIF Plan of Treatment: Discharge to home. Patient has received postoperative medications and instructed in their use. Patient will limit bending twisting and lifting more than 10 pounds. Patient will follow-up in clinic in 2 weeks for wound check. Discharge Plan Discharge Plan Patient Disposition: Home Provider Discharge Comment: DC home with HH pending PT Discharge orders & Medications Prescriptions: Continued simvastatin 10 mg Tablet 10 mg PO BEDTIME acetaminophen 500 mg Tablet 500 - 1,000 mg PO BEDTIME PRN (Reason: Pain) losartan 25 mg Tablet 25 mg PO DAILY pramipexole 0.125 mg Tablet 0.125 mg PO BEDTIME PRN (Reason: RLS) gabapentin 100 mg Capsule 100 mg PO BEDTIME sertraline 50 mg Tablet 75 mg PO DAILY omeprazole 20 mg Tablet,Delayed Release (Dr/Ec) 20 mg PO DAILY Follow up/Referrals: Lynda Escalona MD [Physician] - 03/27/24 2:50 pm (Follow up w/ Drew Bridges PA-C, at [facility] office in [place].) Christine Alonzo MD [Primary Care Provider] - Diet/Activity/Treatments Diet: Diet as Tolerated Activity: No deep bending or twisting at the waist. No lifting more than 10 pounds. Cold/Heat Therapy: Heating pad to low back as needed for pain. Skin/Wound/Dressing Care Report to your healthcare provider any signs of infection, such as:: chills, fever, night sweats, unusual drainage and unusual redness Dressing: May shower. Keep dressing as dry as possible. if dressing becomes wet or dirty, may remove and replace with clean, dry gauze. No bathing or otherwise soaking incisions. Do not apply any creams, lotions, or ointments to incisions. Visit Report/Discharge Packet Stand Alone Forms: Patient Portal/API, Stroke Signs & Symptoms Discharge Data Primary Care Provider: Christine Alonzo VTE Deep Vein Thrombosis/Pulmonary Embolism Present on Admission: No
--- NOTE | 2024-03-13 08:35 | PT.IPTN ---
Current Diagnoses Spondylolisthesis, lumbar region (03/11/24) Spinal stenosis, lumbar region with neurogenic claudication (03/11/24) Surgery Performed Operation Date: 03/11/24 11:45 Actual Procedures p L3-4 TLIF(Not Applicable) - Lynda Escalona MD Physical Therapy Treatment Note M2 PT-IP Current Condition Start: 03/11/24 17:00 Freq: NEEDED Status: Active Protocol: Document 03/11/24 16:14 AB (Rec: 03/11/24 17:15 AB [id number]) Physical Therapy Current Condition Current Condition Evaluation Date 03/11/24 Treatment Diagnosis s/p L3-4 TLIF; difficulty in walking Onset Date 03/11/24 M3 PT-IP Subjective Start: 03/11/24 17:00 Freq: NEEDED Status: Active Protocol: Document 03/13/24 08:54 TS (Rec: 03/13/24 09:04 TS [id number]) Subjective Physical Therapy Visit Type Type Treatment Note Visit Start Time 08:35 Visit Stop Time 08:50 Number of GLOBAL ENGINEERING MANAGER Visits 3 Physical Therapy Visit Comments Patient Comments Pt found resting in bed, reports not taking pain meds to see if it helps with her BP . Pt is agreeable to PT. Therapy Pain Assessment Pain When Pain Assessed During Mobility Pain Present Pain Present Pain Reported M4 PT-IP Mobility and Gait Start: 03/11/24 17:00 Freq: NEEDED Status: Active Protocol: Document 03/13/24 08:54 TS (Rec: 03/13/24 09:04 TS [id number]) PT-Bed Mobility Assessment Rolling Type of Rolling Log Rolling Level of Assist Standby Assistance Supine to Sit Supine to Sit Standby Assistance,Bedrails Sit to Supine Sit to Supine Standby Assistance Scooting Scooting to Edge of Bed Standby Assistance PT-Transfer Assessment Sit to and From Stand Sit to and from Stand Standby Assistance Equipment Transfer Assistive Device Gait Belt,Front Wheeled Walker Orthotic/Prosthetic Devices or Brace: No Comments Mobility Comments Bp supine 124/53. Supine to sit SBA with use of bedrails. Pt ambulated to toilet ~10 SBA with FWW and a step thru gait . She performed own pericare. She ambulated another ~10' BP in standing 92/43. Pt reports some lightheadedness. She ambulated another ~100SBA with FWW, continues to have lightheadedness. Sit to supine into bed SBA with logroll onto back, provided cues for decreased twisting. Pt was left in bed, all needs met. Gait Assessment Gait Gait Assistance Required: Standby Assistance Distance (Feet) 120 Able to Maintain Weight Bearing Status Yes During Gait Assistive Devices Assistive Device Gait Belt,Front Wheeled Walker Orthotic/Prosthetic Devices or Brace: No Gait Deviations General Gait Pattern Decreased Stride Length, Decreased Feet Clearance,Step- to Gait Factors Limiting Gait Function Factors Limiting Gait Function Decreased Activity Tolerance, Decreased Strength,Difficulty Following Directions,Limited Range of Motion,Pain,Poor Balance,Poor Safety Awareness, Respiratory Distress Comments Gait Comments See mobility comments PT-Balance Assessment Sitting Balance and Reactions Static Sitting Balance Ability Good Dynamic Sitting Balance Ability Fair Standing Balance and Reactions Static Standing Balance Ability Good Dynamic Standing Balance Ability Fair Device Used FWW M5 PT-IP Objective Assessments Start: 03/11/24 17:00 Freq: NEEDED Status: Active Protocol: Document 03/11/24 16:14 AB (Rec: 03/11/24 17:15 AB [id number]) Orientation Orientation/Cognition Level of Alertness Alert Orientation Name,Place,Situation Safety Awareness Decreased Safety Awareness Memory Description Short Term Impaired Gross Range of Motion Lower Extremity ROM Assessment Within Functional Limits Strength Lower Extremity Strength Assessment Right Impaired Hip 4-/5 Knee 3+/5 Sensation Assessment Sensation Gross Sensation WNL Muscle Tone Muscle Tone WNL Yes M6 PT-IP Treatment Start: 03/11/24 17:00 Freq: NEEDED Status: Active Protocol: Document 03/13/24 08:54 TS (Rec: 03/13/24 09:04 TS [id number]) Physical Therapy Treatment Education Education Provided Precautions,Weight Bearing Status,Post-Op Packet,Safety M7 PT-IP Assessment and Plan Start: 03/11/24 17:00 Freq: NEEDED Status: Active Protocol: Document 03/13/24 08:54 TS (Rec: 03/13/24 09:04 TS [id number]) PT Summary Assessment and Plan Potential Rehabilitation Potential Fair Summary Impairments Pain,ROM,Strength,Balance, Coordination,Sensation,Tone, Cognition,Bed Mobility, Transfers,Gait,Activity Tolerance Progress Towards Goals Progressing Toward Goals Assessment Summary Jamilah continues to do well with her mobility. She continues to be orthstatic, BP in supine 124/53 and 92/43 in standing. She has some lightheadedness with standing and ambulation. She is SBA for for all mobility and demonstrates good carryover. PT is recommending home with assist. Goals Bed Mobility Goal Standby Assistance Transfer Goal Standby Assistance,Front Wheeled Walker Gait Goal Standby Assistance,Front Wheel Walker Gait Distance 150 Other Goals improve bed mobility, transfers, ambulation using FWW ~ 250 ft mod I Frequency of Treatment Frequency Of Treatment Twice a Day Treatment Plan Physical Therapy Treatment Plan Bed Mobility Training,Transfer Training,Gait Training, Therapeutic Exercise,Balance Retraining,Post Op Education, Discharge Planning,Hot or Cold Pack,Neuromuscular Re-ed, Coordination Retraining,Manual Therapy Precautions Lumbar Precautions Log Roll,No Twisting,Limit Bending,Lifting Restriction of 10 lbs,Gait Belt above Incisional Area Recommendations To Nursing Amount of Assist Needed Standby Assistance Discharge Recommendations PT Discharge Recommendations Home with Assistance,Home Health Transportation Needs at Discharge Private Vehicle
--- NOTE | 2024-03-13 09:07 | CM.SWNOTE ---
DCP Continued: Reviewed EMR and team rounds for pt?s medical status. Per Physician, pt medically cleared to discharge today. It was confirmed by [facility] that pt has been accepted for services. F2F orders have been completed and sent. DCP entered room and spoke with pt and daughter to notify of HH acceptance, pt and daughter verbalized understanding. DCP encouraged daughter to call [facility] if no scheduling has been made after discharge. Plan: Patient to discharge home with daughter to assist, [facility] following. CM Team will continue to follow for coordination of discharge plans. RUSTAM Irving
--- NOTE | 2024-03-13 10:26 | PC.NURSE ---
Patient is A&OX4, slightly hypotensive but a.m. BP medications held and patient able to mobilize and participate with PT. She denies dizziness today and is cleared for discharge by ortho PA. She verbalizes understanding of site care, spinal precautions, s/sx of infection, medications, and follow up appointment. She is escorted by RN to private vehicle in / for discharge home with daughter today at 10:07 a.m.
== END 2024-03-13 10:07 | disposition home health service (06) | DRG 455 ==
PROVIDERS: Physician Assistant; Admitting Provider Orthopaedic Surgery Orthopaedic Surgery of the Spine; PCP Internal Medicine; Referring Provider Orthopaedic Surgery Orthopaedic Surgery of the Spine; Visit Provider Orthopaedic Surgery Orthopaedic Surgery of the Spine
PROC: 0SG00AJ Fusion of Lumbar Vertebral Joint with Interbody Fusion Device, Posterior Approach, Anterior Column, Open Approach (ICD-10-PCS; principal; 2024-03-11 11:45)
DX: M43.16 Spondylolisthesis, lumbar region (principal); M48.062 Spinal stenosis, lumbar region with neurogenic claudication; M54.16 Radiculopathy, lumbar region; I95.81 Postprocedural hypotension; I10 Essential (primary) hypertension; E78.5 Hyperlipidemia, unspecified; G25.81 Restless legs syndrome; F32.A Depression, unspecified; K21.9 Gastro-esophageal reflux disease without esophagitis
CPT/HCPCS: 36415; 72100; 76000; 85014; 85018; 94762; 97116; 97163; 97165; 97530; 97535; C9290; J0171; J0690; J1100; J1170; J2405; J2704; J2765; J3010